=== PATIENT | female | born 1955 | race Hispanic/Latino ===

== ENCOUNTER → 2019-09-01 | Outpatient (CLI) | payer BC, OTHER | END | disposition home or self-care (01) | LOC: RAH 07:53 | PROVIDERS: ATTEND Nurse Practitioner Adult Health | DX: Z12.31 Encounter for screening mammogram for malignant neoplasm of breast (principal) | CPT/HCPCS: 77067 ==

== ENCOUNTER → 2020-03-22 | Outpatient (CLI) | payer OTHER | END | disposition home or self-care (01) | LOC: RAH 14:40 | PROVIDERS: ATTEND Nurse Practitioner Adult Health | DX: Z13.6 Encounter for screening for cardiovascular disorders (principal) | CPT/HCPCS: 75571 ==

== ENCOUNTER 2021-02-13 13:42 | Day surgery (SDC) | payer BC, OTHER, MEDICARE ==
[~2021-02-13] VITALS: Ht 157.5 cm; Wt 74.8 kg
[2021-02-13] MEDS ORDERED: 0.9%NACL 1000ML 1,000 ML IV ONE (14:20)
[2021-02-13 14:42] VITALS: BP 145/80
[2021-02-13] MEDS ORDERED: MULT-1367 PO (14:54)
[2021-02-13] MEDS ORDERED: METF-446 PO (14:54)
[2021-02-13] MEDS ORDERED: EMPA25TA PO (14:54)
[2021-02-13] MEDS ORDERED: MONT10TA21 PO (14:54)
[2021-02-13] MEDS ORDERED: PROPOFOL 10 MG/ML 20ML VIAL IV ONE (15:28)
[2021-02-13] MEDS ORDERED: GLYCOPYRROLATE 0.2 MG/ML 5 ML VIAL ONE (15:29)
[2021-02-13] MEDS ORDERED: LIDOCAINE HCL 400MG/20ML VIAL ONE (15:29)
[2021-02-13 16:00] VITALS: BP 109/64
[2021-02-13 16:05] VITALS: BP 118/67
[2021-02-13 16:10] VITALS: BP 117/65
[2021-02-13 16:15] VITALS: BP 111/68
[2021-02-13 16:30] VITALS: BP 116/67
== END 2021-02-13 16:30 | disposition home or self-care (01) ==
LOC: DAH 13:42 → ENDO 13:42
PROVIDERS: ATTEND Internal Medicine
DX: Z12.11 Encounter for screening for malignant neoplasm of colon (principal); K63.5 Polyp of colon; K64.0 First degree hemorrhoids; E11.9 Type 2 diabetes mellitus without complications; J45.909 Unspecified asthma, uncomplicated; E78.5 Hyperlipidemia, unspecified; Z98.890 Other specified postprocedural states; Z91.040 Latex allergy status; Z80.0 Family history of malignant neoplasm of digestive organs; Z79.84 Long term (current) use of oral hypoglycemic drugs; Z79.899 Other long term (current) drug therapy; Z86.010 Personal history of colon polyps; Z90.710 Acquired absence of both cervix and uterus
CPT/HCPCS: 45380; 45385; 82948 ×2; A4215 ×2; A4221; A4222; A4223; A4606; A4620; A4657; A4663; J2704; J3490 ×2; J7030

== ENCOUNTER → 2021-02-26 | Outpatient (CLI) | payer MEDICARE ==
[~2021-02-26] MED LIST: EMPA25TA PO; METF-446 PO; MONT10TA21 PO; MULT-1367 PO
== END | disposition home or self-care (01) ==
LOC: RAH 09:58
PROVIDERS: ATTEND Nurse Practitioner Adult Health
DX: Z12.31 Encounter for screening mammogram for malignant neoplasm of breast (principal)
CPT/HCPCS: 77067

== ENCOUNTER → 2023-05-13 | Outpatient (CLI) | payer MEDICARE ==
[~2023-05-13] MED LIST changes: +MONT-47 PO; -MONT10TA21 PO
== END | disposition home or self-care (01) ==
LOC: RAH 13:40
PROVIDERS: ATTEND Nurse Practitioner Adult Health
DX: Z12.31 Encounter for screening mammogram for malignant neoplasm of breast (principal)
CPT/HCPCS: 77067

== ENCOUNTER → 2024-06-23 | Outpatient (CLI) | payer MEDICARE ==
--- NOTE | 2024-06-23 09:25 | HMCIMG ---
MAMMO SCREENING BILATERAL HISTORY: Screening mammogram. COMPARISON: 05/13/2023 TECHNIQUE: Bilateral screening mammogram with CAD was performed with craniocaudal and mediolateral oblique projections. FINDINGS: There are scattered areas of fibroglandular density. There is no evidence of a dominant mass, or suspicious microcalcification. There is no evidence of nipple retraction or skin thickening. IMPRESSION: 1. Stable mammogram. Patient was entered into a reminder system with a target due date for their next mammogram. BI-RADS: CATEGORY 2: BENIGN FINDINGS Recommend monthly self breast exam as well as annual clinical examination. A negative x-ray should not delay biopsy if a dominant or clinically suspicious mass is present, since 8-10% of cancers are not identified by mammography. Dense breasts particularly, may obscure an underlying neoplasm. Some of these may be detected clinically and therefore, clinical examination is an essential part of breast evaluation.
== END | disposition home or self-care (01) ==
LOC: RAH 08:26
PROVIDERS: ATTEND Nurse Practitioner Adult Health
DX: Z12.31 Encounter for screening mammogram for malignant neoplasm of breast (principal); R92.323 Mammographic fibroglandular density, bilateral breasts
CPT/HCPCS: 77067

== ENCOUNTER → 2024-06-28 | Outpatient (CLI) | payer OTHER ==
--- NOTE | 2024-06-28 10:58 | HMCIMG ---
CT CORONARY CALCIFICATION SCORING: Anatomic images were reviewed. The calcium score is being generated and reported separately. This report is for the visualized anatomy only. Visualized portions of the lungs are clear. Hilar and mediastinal structures appear normal. Osseous structures are unremarkable. Impression: 1. Negative noncardiac anatomic findings. 2. The calcium score is 0 consistent with absence of calcified plaque. CT was performed with one or more following dose reduction techniques: automated exposure control, adjustment of the mA and kv according to patient's size, or use of a iterative reconstruction technique.
== END | disposition home or self-care (01) ==
LOC: RAH 09:17
PROVIDERS: ATTEND Nurse Practitioner Adult Health
DX: Z13.6 Encounter for screening for cardiovascular disorders (principal)
CPT/HCPCS: 75571

== ENCOUNTER → 2025-07-06 | Outpatient (CLI) | payer MEDICARE | END | disposition home or self-care (01) | LOC: RAH 10:14 | PROVIDERS: ATTEND Nurse Practitioner Adult Health | DX: Z12.31 Encounter for screening mammogram for malignant neoplasm of breast (principal) | CPT/HCPCS: 77067 ==